=== PATIENT | female | born 1940 | race Caucasian/White ===

== ENCOUNTER 2017-05-07 07:11 | Observation (INO) | payer MEDICARE, BC ==
[~2017-05-07] VITALS: Ht 160 cm; Wt 55.7 kg
--- NOTE | ~2017-05-07 | CR72 ---
[facility] A Service of [facility] & [facility] RADIOLOGY TEXT RESULTS PATIENT: NATIVIDAD HEAD LOCATION: [facility] 577- : 38 UNIT #: [id number] AGE: [address]: Faith Norman MD SEX: F ORDER DR: [id number] [facility] [address] [place], [place] [address] [id number] E MR#: [id number] Acc #: [id number] NAME: NATIVIDAD HEAD. : 1940 SEX: F STUDY DATE/TIME: 05/07/2017 7:58 UNIT: [facility] ROOM: STUDY DESCRIPTION: CR Chest Single View Portable Attending Physician: Soto Lucas M.D. Ordering Physician: Soto Lucas M.D. Primary Care Physician: Faith Norman M.D. MEDICAL IMAGING REPORT This report is preliminary unless electronic signature is present EXAM Portable chest INDICATION Dizziness, shortness of breath today. COMPARISON 08/24/2011. FINDINGS Lungs are well expanded. There is no airspace consolidation. The heart size is stable. Tortuous aorta. IMPRESSION No active disease. Dictated by... Edilson Cardozo M.D. THIS IS AN ELECTRONICALLY VERIFIED REPORT Edilson Cardozo M.D. at 05/08/2017 4:39 PM ERIC/joel TD: 05/07/2017 14:01 JOB #: [id number] MEDICAL IMAGING REPORT Page 1 of 1 COPY
--- NOTE | ~2017-05-07 | CT71 ---
[facility] A Service of [facility] & [facility] RADIOLOGY TEXT RESULTS PATIENT: NATIVIDAD HEAD LOCATION: [facility] 577-01 : 38 UNIT #: [id number] AGE: [address]: Faith Norman MD SEX: F ORDER DR: [id number] [facility] [address] [place], [place] [address] [id number] I MR#: [id number] Acc #: [id number] NAME: NATIVIDAD HEAD. : 1940 SEX: F STUDY DATE/TIME: 05/07/2017 10:59 UNIT: [facility] ROOM: [facility] STUDY DESCRIPTION: CT Head Wo Contrast Attending Physician: Faith Norman M.D. Ordering Physician: Soto Lucas M.D. Primary Care Physician: Faith Norman M.D. MEDICAL IMAGING REPORT This report is preliminary unless electronic signature is present EXAM CT head without contrast INDICATIONS Dizziness and nausea since 5 o'clock this morning TECHNIQUE Axial CT images were obtained from the vertex of the skull through the skull base and intravenous contrast material was administered. This CT exam was performed with one or more of the following radiation dose reduction techniques: automatic exposure control, adjustment of mA and/or kV according to patient size, and iterative reconstruction. FINDINGS No acute intracranial hemorrhage is seen. Patient has some mild atrophy in keeping with the age of 77. There is fairly extensive periventricular deep white matter microangiopathic disease. There is no midline shift or mass effect. There is atherosclerotic involvement of the cavernous carotid arteries. Visualized paranasal sinuses and mastoid air cells appear clear. There are no focal soft tissue abnormalities. IMPRESSION 1. No acute intracranial process identified. Specifically there is no evidence of acute hemorrhage, mass lesion or acute infarct. 2. Mild atrophy and microangiopathic disease is noted above. Dictated by... Rose Garcia M.D. THIS IS AN ELECTRONICALLY VERIFIED REPORT Rose Garcia M.D. at 05/09/2017 4:55 PM [facility] A Service of [facility] & [facility] RADIOLOGY TEXT RESULTS PATIENT: NATIVIDAD HEAD LOCATION: [facility] 577-01 : 38 UNIT #: [id number] AGE: [address]: Faith Norman MD SEX: F ORDER DR: Annemarie TD: 05/07/2017 20:01 JOB #: [id number] MEDICAL IMAGING REPORT Page 1 of 1 COPY
--- NOTE | ~2017-05-07 | DS ---
Unit #: [id number] #: [id number] Patient: LACHELLE HANKS [id number] [address] [address] [id number] I MR#: [id number] NAME: LACHELLE HANKS. ROOM: 577 Age: 77 Sex: F Admission Date: 05/07/2017 : 1940 Discharge Date: 05/08/2017 Attending Physician: Faith Norman M.D. Primary Care Physician: Faith Norman M.D. DISCHARGE SUMMARY FINAL DIAGNOSES 1. Vertigo, most likely benign positional vertigo. 2. Rule out cerebrovascular accident. Magnetic resonance imaging is being ordered. Still pending. 3. Hypertension. 4. Hyperlipidemia, intolerant to statins. 5. Small, 2- to 3-millimeter, aneurysm. Followup magnetic resonance imaging in 1 year. 6. Small lesion, right lobe of thyroid gland. May need ultrasound. DISCHARGE MEDICATIONS 1. Meclizine 25 mg t.i.d. p.r.n. 2. Hydrochlorothiazide 25 mg daily. 3. Continue eyedrops at home. CONSULTATIONS DURING HOSPITALIZATION Dr. Langley for neurology service. DIAGNOSTIC STUDIES LAB WORKUP DURING HOSPITALIZATION: BMP shows sodium 133, potassium 3.5, chloride 99, BUN 14, creatinine 0.7. Liver enzymes are normal. WBC 6, hemoglobin 14.8, hematocrit 43.3, platelet count 226. Urinalysis is normal. Troponin less than 0.05. IMAGING: Chest x-ray, single view, was done, which showed no active disease. CT of the head without contrast was done, which showed no acute intracranial process identified. CTA of the head and neck was done, which showed both vertebral arteries are patient with the left being dominant. No intracranial vascular cutoff. Small bilateral posterior communicators. On the right side there is a small infundibulum, and on the left side there is a small 2- to 3-mm aneurysm. Recommend one-year followup MRA intracranial to reassess. Some atherosclerotic disease in the left subclavian with mild narrowing. There is a lesion in the right lobe of the thyroid gland, which is nonspecific. MRI of the head has been ordered. Results are still pending. HOSPITAL COURSE Ms. Lachelle Hanks is a 77-year-old female who is very well known to me. Was admitted to the hospital with vertigo, dizziness and nausea. The patient was admitted to rule out any CVA. Was started on meclizine. She is Unit #: [id number] #: [id number] Patient: LACHELLE HANKS doing much better at this time. Dr. Langley was consulted. Most likely the patient does have benign positional vertigo. Needs to be treated with meclizine. MRI will be done. If MRI is normal, the patient will be discharged home. Plan of care has been discussed with the patient. EXAMINATION ON DISCHARGE VITAL SIGNS: Blood pressure is 145/65, respiratory rate 18, pulse 76, temperature 97.7, oxygen saturation 100%. HEAD: Normocephalic. EYES: No nystagmus. RESPIRATORY: Chest has fair air entry. CVS: Regular rhythm. DISCHARGE INSTRUCTIONS 1. Patient to follow up with primary care provider in 1 week. 2. Thyroid ultrasound to be ordered as outpatient. 3. MRA of the head and neck to be done in one year to evaluate 2- to 3-mm aneurysm. Dictated by... Yessica Garcia/marisol TD: 05/09/2017 11:39 JOB #: [id number] DISCHARGE SUMMARY Page 1 of 1 X Faith Norman MD X DISCHARGE SUMMARY
--- NOTE | ~2017-05-07 | MR18 ---
[facility] A Service of [facility] & [facility] RADIOLOGY TEXT RESULTS PATIENT: NATIVIDAD HEAD LOCATION: [facility] 5704-07 : 38 UNIT #: [id number] AGE: [address]: Faith Norman MD SEX: F ORDER DR: [id number] [facility] [address] [place], [place] [address] [id number] I MR#: [id number] Acc #: [id number] NAME: NATIVIDAD HEAD. : 1940 SEX: F STUDY DATE/TIME: 05/08/2017 18:22 UNIT: [facility] ROOM: [facility] STUDY DESCRIPTION: MR Brain Wo Contrast Attending Physician: Faith Norman M.D. Ordering Physician: Abdiel Langley M.D. Primary Care Physician: Faith Norman M.D. MRI CENTER REPORT This report is preliminary unless electronic signature is present. EXAM MRI brain without contrast. HISTORY Vertigo for 1 week. Headaches and nausea. FINDINGS MRI of brain was performed without contrast. There is no recent ischemia or infarct. Mqcf-hm-cbiqoiyu chronic ischemic changes in the periventricular white matter bilaterally. Mild generalized cerebral cortical atrophy. No midline shift or ventricular dilatation, focal atrophy or extraaxial fluid collection. IMPRESSION 1. No acute findings. 2. No recent ischemia or infarct. 3. Mild chronic ischemic changes in the deep white matter bilaterally. 4. Mild generalized cerebral cortical atrophy. Dictated by... Trent Rodriguez M.D. THIS IS AN ELECTRONICALLY VERIFIED REPORT Trent Rodriguez M.D. at 05/09/2017 3:15 PM MUSA/yulisa TD: 05/08/2017 20:44 JOB #: [id number] MRI CENTER REPORT [facility] A Service of [facility] & [facility] RADIOLOGY TEXT RESULTS PATIENT: NATIVIDAD HEAD LOCATION: [facility] 5704-07 : 38 UNIT #: [id number] AGE: [address]: Faith Norman MD SEX: F ORDER DR: Page 1 of 1 COPY
--- NOTE | ~2017-05-07 | CT23 ---
[facility] A Service of [facility] & [facility] RADIOLOGY TEXT RESULTS PATIENT: NATIVIDAD HEAD LOCATION: [facility] : 38 UNIT #: [id number] AGE: [address]: Soto Lucas MD SEX: F ORDER DR: [id number] [facility] [address] [place], [place] [address] [id number] E MR#: [id number] Acc #: [id number] NAME: NATIVIDAD HEAD. : 1940 SEX: F STUDY DATE/TIME: 05/07/2017 11:01 UNIT: [facility] ROOM: STUDY DESCRIPTION: CT Angio Neck Attending Physician: Soto Lucas M.D. Ordering Physician: Soto Lucas M.D. Primary Care Physician: Faith Norman M.D. MEDICAL IMAGING REPORT This report is preliminary unless electronic signature is present EXAM CT angiogram of the head and neck HISTORY Dizziness and nausea since [address] angiography of the head and neck vessels performed during the intravenous administration of 100 mL of Isovue 370. Imaging acquired in the axial plane followed by multiple reconstructed and reformatted images for the purpose of 3-D CT angiography of the head and neck vessels. This CT examination was performed with one or more of the following radiation dose reduction techniques: automatic exposure control, adjustment of mA and/or kV according to patient size, and iterative reconstruction. Comparison head CT is from earlier today. There is some vascular calcification at the aortic arch and into the origin of the left subclavian where there is also some soft plaque and probably mild stenosis. There is a bovine origin to left common carotid artery. Evaluation of the right carotid system shows 0% stenosis at the right carotid bifurcation by NASCET criteria. The right carotid siphon is widely patent. There is 0% stenosis at the left carotid bifurcation by NASCET criteria. There is mild calcified plaque at the left carotid siphon but there is no significant stenosis suspected. The left vertebral artery is widely patent and supplies the basilar. The right vertebral artery is widely patent and supplies the basilar. The left is dominant. Evaluation of the intracranial circulation shows no intracranial vascular cutoff. There is a anterior communicator present. There is a small right STS. [facility] A Service of [facility] & [facility] RADIOLOGY TEXT RESULTS PATIENT: NATIVIDAD HEAD [id number] 38 UNIT #: [id number] AGE: [address]: Soto Lucas MD SEX: F ORDER DR: posterior communicator with an infundibulum at its origin. There is a small left posterior communicator with what is probably a small aneurysm at its origin. It is not pyramidal in configuration and is about 2-3 mm in dimension. It should be followed. The dural venous sinuses are grossly patent. No focal central stenosis is suspected. Patient has had cataract surgery bilaterally. There is a nonspecific lesion in the right lobe of the thyroid gland which is mostly low in attenuation but has a focus of calcification within it. Its overall measurements are about 1.2 x 0.8 cm dimension and the calcification is about 4 mm in dimension and this should be further characterized with a nonemergent thyroid ultrasound. There are paraseptal emphysematous changes in the upper lungs. There are degenerative changes in the cervical spine. IMPRESSION 1. By NASCET criteria, 0% stenosis at either carotid bifurcation. 2. Both vertebral arteries are patent with the left being dominant, both supply the basilar. 3. There is no intracranial vascular cutoff. 4. There are small bilateral posterior communicators. On the right side, there is a small infundibulum and on the left side there is a small 2-3 mm aneurysm. I would recommend a 1 year followup MR angiogram intracranial to reassess. 5. There is some atherosclerotic disease at the origin of the left subclavian with mild narrowing. 6. Paraseptal emphysema. 7. There is a lesion in the right lobe of the thyroid gland which is nonspecific and should be characterized with a nonemergent thyroid ultrasound and follow up. STAT * RESULT Dictated by... Lily Silva M.D. THIS IS AN ELECTRONICALLY VERIFIED REPORT Lily Silva M.D. at 05/07/2017 4:09 PM AIDEN/joel TD: 05/07/2017 12:36 JOB #: [id number] MEDICAL IMAGING REPORT Page 1 of 1 COPY
--- NOTE | ~2017-05-07 | HP ---
Unit #: [id number] #: [id number] Patient: NATIVIDAD HEAD [id number] [address] [place], [place] [address] [id number] E MR#: [id number] NAME: NATIVIADD HEAD ROOM: Age: 77 Sex: F Admission Date: 05/07/2017 : 1940 Attending Physician: Soto Lucas M.D. Primary Care Physician: Faith Norman M.D. HISTORY AND PHYSICAL CHIEF COMPLAINT Dizziness. HISTORY OF PRESENTING ILLNESS Miss Larose is a 77-year-old female who is pretty healthy, has history of hypertension and osteoporosis, came because of dizziness. According to patient, this has been going on for last three to four days. First episode was when she was doing yoga and lying down on the floor. Two days ago in the nighttime she got dizzy and fell on the bed. She did not hurt herself. She did not pass out. She did not have any seizures. Patient lives by herself. This morning at 5 o'clock started having dizziness and room was rotating. She was feeling nauseous. She did not have any chest pain or palpitation or vomiting. She came to ER for further evaluation and is being admitted to rule out any CVA. PAST MEDICAL HISTORY 1. Hypertension. 2. Osteoporosis. 3. Hyperlipidemia. 4. Glaucoma. HOME MEDICATION 1. Latanoprost one drop each eye q.h.s. 2. Hydrochlorothiazide 25 mg daily. 3. Lipitor 20 mg daily. Although, according to patient, she has not been taking Lipitor because it causes a lot of pains. PAST SURGICAL HISTORY 1. History of tubal ligation. 2. History of left distal radius fracture surgery in 2012. 3. Open reduction and internal fixation on left radial shaft fracture, removal of hardware left distal radius. ALLERGIES Sulfa medication. SOCIAL HISTORY Patient lives by herself. She does have a 97-year-old mother who lives in the senior care and she visits her a lot. She has no history of smoking, alcohol or drug abuse. FAMILY HISTORY Family history of cardiac disease is present. Unit #: [id number] #: [id number] Patient: NATIVIDAD HEAD REVIEW OF SYMPTOMS No history of fever, chills or rigors. No history of chest pain. No history of shortness of breath. No history of ear, nose, throat problem. No history of abdominal pain. She does have nausea but no vomiting. No constipation or diarrhea. No syncopal episode and no seizure disorder. PHYSICAL EXAMINATION Patient is being evaluated in room 9 in ER. VITAL SIGNS: Blood pressure is 151/66. Respiratory rate is 17. Pulse is 62. Temperature 97.6. Oxygen saturation 97%. HEENT: Head is normocephalic. Eye movements are normal. No nystagmus. NECK: Neck is supple. No carotid bruit. CHEST: Has fair air entry. No additional sounds. CVS: S1, S2 positive. Regular rhythm. ABDOMEN: Soft. EXTREMITIES: Negative edema. ORTHOTIC AIDE: Patient is awake, alert, oriented x3. Does not seem to have focal neurological deficit. DIAGNOSTIC STUDIES LABORATORY WORKUP: WBC 6.0, hemoglobin is 14.8, hematocrit 43.3 and platelet count of 226. Urinalysis is normal. Troponin was done which is less than 0.05. Sodium 133, potassium 3.5, chloride 99, BUN 14, creatinine 0.7, liver enzymes are stable. IMAGING: Chest x-ray single view was done which shows no active disease. CARDIOVASCULAR: EKG shows normal sinus rhythm. ASSESSMENT Patient is being admitted to telemetry unit with: 1. Dizziness/vertigo, rule out cerebrovascular accident. 2. Inability to ambulate secondary to above. 3. Hypertension. 4. Hyperlipidemia. 5. Osteoporosis. PLAN Plan is admit to telemetry unit. Dr. Langley has been consulted. MRI of the head would be ordered. Home medications have been reviewed and adjusted. Meclizine 25 mg t.i.d. and q.6 h. p.r.n. Aspirin 81 mg daily. Protonix 40 mg daily. Falls precaution. SCDs bilateral. Please refer to progress note for further orders. I have discussed with the patient and the patient's daughter at length about plan of care. Dictated by Yessica Garcia TD: 05/07/2017 15:48 JOB #: [id number] Unit #: [id number] #: [id number] Patient: NATIVIDAD HEAD HISTORY AND PHYSICAL Page 1 of 1 X Faith Norman MD HISTORY AND PHYSICAL
--- NOTE | ~2017-05-07 | EKG ---
PATIENT: NATIVIDAD HEAD UNIT #: [id number] Ventricular Rate: 71 BPM Atrial Rate: 71 BPM P-R Interval: 188 ms QRS Duration: 82 ms Q-T Interval: 406 ms QTC Calculation(Bezet): 441 ms P [place]: 21 degrees Calculated R [place]: 23 degrees Calculated T [place]: 62 degrees Diagnosis Line: Normal sinus rhythm Diagnosis Line: Septal infarct , age undetermined Diagnosis Line: Abnormal ECG Diagnosis Line: When compared with ECG of 14-APR-2015 10:25, Diagnosis Line: Septal infarct is now Present Diagnosis Line: Confirmed by FAVIAN BRICEÑO MD ([id number]) on Diagnosis Line: 05/07/2017 8:56:51 AM INTERPRETING MD: NAVARRO HAYES
--- NOTE | ~2017-05-07 | CT17 ---
[facility] A Service of [facility] RADIOLOGY TEXT RESULTS PATIENT: NATIVIDAD HEAD LOCATION: [facility] : 38 UNIT #: [id number] AGE: [address]: Soto Lucas MD SEX: F ORDER DR: [id number] [facility] [address] [place], [place] [address] [id number] E MR#: [id number] Acc #: [id number] NAME: NATIVIDAD HEAD. : 1940 SEX: F STUDY DATE/TIME: 05/07/2017 11:01 UNIT: [facility] ROOM: STUDY DESCRIPTION: CT Angio Head Attending Physician: Soto Lucas M.D. Ordering Physician: Soto Lucas M.D. Primary Care Physician: Faith Norman M.D. MEDICAL IMAGING REPORT This report is preliminary unless electronic signature is present EXAM CTA of the neck FINDINGS Please see CTA of the head for results. STAT * RESULT Dictated by... Lily Silva M.D. THIS IS AN ELECTRONICALLY VERIFIED REPORT Lily Silva M.D. at 05/07/2017 4:09 PM AIDEN/joel TD: 05/07/2017 12:33 JOB #: [id number] MEDICAL IMAGING REPORT Page 1 of 1 COPY
--- NOTE | ~2017-05-07 | CO ---
Unit #: [id number] #: [id number] Patient: NATIVIDAD HEAD [id number] [facility] [address] [place], [place] [address] [id number] MR#: [id number] NAME: NATIVIDAD HEAD ROOM: 577 Age: 77 Sex: F Admission Date: 05/07/2017 : 1940 Attending Physician: Faith Norman M.D. Primary Care Physician: Faith Norman M.D. Consultation Date: 05/07/2017 CONSULTATION REPORT PRIMARY CARE PHYSICIAN Faith Norman M.D. CONSULTING PHYSICIAN Faith Norman M.D. REASON FOR CONSULT Dizziness/vertigo. PATIENT IDENTIFICATION This is a 77-year-old right-handed, female, evaluated in the ER room 9 at [facility]. SOURCE OF INFORMATION Obtained from the patient as well as medical record. HISTORY OF PRESENT ILLNESS This is a very pleasant 77-year-old right-handed, female with a past medical history of hypertension and hyperlipidemia, who presents to [facility] with a chief complaint of dizziness. The patient states that she is very active and independent at baseline. She was doing yoga last week whenever she had a couple of light episodes of "dizziness" where she states that the room was spinning. She was a little nauseated, but she reports the symptoms resolved, so she thought that everything was okay and went on about her business; however, over the last couple of days, she had sudden recurrence of vertigo more severe with severe nausea, but no vomiting. She states that it has been ongoing for the last couple of days. At one point, last night, she got so bad that she actually fell on her bed. She states that she did not injure herself or lose consciousness or lose awareness. She denies any associated slurred speech or loss of speech or abnormal speech. She denies any associated double vision, blurred vision, or loss of vision. Denies amaurosis fugax. She denies headache, neck pain, or neck injury. She denies any recent injury or manipulation. She denies any shortness of air, chest pain, palpitations, focal weakness, paresthesia, or any other associated symptoms. She reports that she feels better whenever she is sitting still and worse whenever she lies flat and turns and changes position. On exam, she is nonfocal, but does have recurrence of symptoms. When I have her lie flat with her head turned to the left, she has a positive Kane-Hallpike on the left. CT of the head was done without contrast in the ER, which was negative for any acute intracranial finding. She had a CT angiogram of the head and neck done as well in the ER, which per Radiology report, by NASCET criteria, shows 0% stenosis, either carotid bifurcation, both vertebral arteries are patent with left being Unit #: [id number] #: [id number] Patient: NATIVIDAD HEAD dominant with both supplying the basilar artery. No intracranial vascular cut off. There are small bilateral posterior communicators. On the right side, there is a small infundibulum, and on the left side, there is a small 2 to 3 mm aneurysm. There was some atherosclerotic disease at the origin of the left subclavian with mild narrowing paraseptal emphysema noted as well as a lesion in the right lobe of the thyroid gland, which is nonspecific and should be characterized with a nonemergent thyroid ultrasound followup. Imaging reviewed personally. She had an EKG in the ER that showed normal sinus rhythm. Septal infarct, age undetermined, per Cardiology report. Otherwise, labs are essentially unremarkable other than some mild hyponatremia with a sodium of 133, chloride of 99, troponin is less than 0.05. Urinalysis is unremarkable and CBC is unremarkable. The patient states that she feels better with medicine that she received in the ER, but states that she still unsteady and not back to her baseline. She was admitted for further workup and evaluation. Neurology was asked to evaluate. PAST MEDICAL HISTORY 1. Hypertension. 2. Hyperlipidemia. 3. Osteoporosis. 4. Glaucoma. She denies a history of neurologic disease or malignancy. PAST SURGICAL HISTORY 1. Tubal ligation. 2. Left distal radius fracture with surgery in 2012 with ORIF done. ALLERGIES Sulfa. HOME MEDICATIONS Are being reconciled. She states she takes medicine for her high blood pressure and also takes a shot for osteoporosis. She states that she used to take a statin, but reports intolerance to that and stop that. She reports muscle pain and cramping as a reason for stopping. FAMILY HISTORY Noncontributory. SOCIAL HISTORY The patient is very independent. She lives by herself. She has family at the bedside. She is very independent with ADLs. She reports that she smoked at a very young age, but has not done so in several years. She denies illicit drug use. She reports occasional alcohol use, but no excessive alcohol use or binge drinking. She states that she has wine on occasion. REVIEW OF SYSTEMS A 14-point review of systems was done. Pertinent positives are as discussed above otherwise negative. PHYSICAL EXAMINATION VITAL SIGNS: Temperature 97.6, pulse 63, respirations 15, blood pressure 134/67, blood pressure in the ER on arrival is 152/92, and oxygen saturation 96%. Height 5 feet 3 inches, weight 123 pounds, BMI 21. NEUROLOGIC: The patient is awake, alert, and oriented to person, place, and time as well as events. No right or left confusion. No finger Unit #: [id number] #: [id number] Patient: NATIVIDAD HEAD agnosia. She is not aphasic, dysarthric, or apraxic. Cranial nerves exam, she demonstrates full roman of vision. Eyes are conjugate without ptosis or nystagmus. Extraocular movements are intact. Sensation of face and scalp is intact. Strength of muscles of facial expression is intact. Hearing is intact to finger rub and conversation. Tongue is midline. Uvula is midline. Palate elevation is normal. Head turning and shoulder shrug is unremarkable. Neck is supple. Motor exam, she demonstrates normal bulk and tone. Strength is equal 5/5 in all extremities. Sensory exam intact to soft touch and pinprick sensation. Gait deferred. Romberg deferred. Coordination unremarkable. Positive Kane-Hallpike on the left. DIAGNOSTIC STUDIES IMAGING STUDIES AND LABORATORY RESULTS: As discussed above. IMPRESSION 1. Vertigo, most likely benign paroxysmal positional vertigo with positive left Kane-Hallpike on exam. 2. Hypertension, stable. 3. Hyperlipidemia, not on statin. She reports intolerance as discussed above. 4. 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 Recommend followup imaging in 1 year. PLAN We will ask PT and OT to evaluate tomorrow. Given her positive Kane-Hallpike on the left, we will observe overnight and continue meclizine and request MRI of the brain to be done tomorrow afternoon when the machine is fixed. Her CT angiogram is unremarkable for any vertebrobasilar insufficiency or dissection and clinically nothing to suggest dissection. Possible discharge to home tomorrow evening if the patient is clinically better and MRI of the brain is negative for stroke. Please call for any questions or issues. We thank you very much for allowing us to assist in the care of this patient. Dictated by... Janneth Marquez A.P.R.N. for Yessica Zuluaga/jayant TD: 05/09/2017 04:42 JOB #: [id number] CONSULTATION REPORT Page 1 of 1 X Janneth Marquez [employer] X CONSULTATION REPORT
[~2017-05-07 07:11] MED LIST: ACETAMINOPHEN325 MG PO; ALENDRONATE SODI5 MG PO; ASPIRIN81 M1 PO; HYDROCHLOROTH12.5 M1 PO; HYDROCHLOROTH12.5 MG PO; HYDROCODON-ACE1 EAC5 PO; LATANOPROST2.5 ML OP; LIPITOR20 MG PO; NITROFURANTOIN100 M3 PO; PRAVACHOL PO; PRAVASTATIN SOD40 MG PO; SKELAXIN PO; ULTRAM PO; VICODIN 5/500 T1 TAB PO; VITAMIN B12 PO; VITAMIN D400 UNI2 PO
[2017-05-07 08:05] LABS: BASOPHIL# 0.1 X10e3 (0-0.3); BASOPHIL% 1.2 % (0-2.5); DIFF IND NO; EOSINOPHIL# 0.2 X10e3 (0-0.7); EOSINOPHIL% 2.6 % (0.0-7.0); HEMATOCRIT 43.3 % (35.0-45.0); HEMOGLOBIN 14.8 gm/dL (12.0-16.0); LYMPHOCYTE# 2.3 X10e3 (1.0-3.5); LYMPHOCYTE% 38.5 % (17.0-45.0); MEAN CELL VOLUME 88.8 FL (83-96); MEAN CORPUSCULAR HEMOGLOBIN 30.3 PG (28-34); MEAN CORPUSCULAR HGB CONC 34.1 g/dL (30-36); MEAN PLATELET VOLUME 8.4 FL (6.5-11.5); MONOCYTE# 0.6 X10e3 (0-1.0); MONOCYTE% 10.1 % (3.0-12.0); NEUTROPHIL# 2.8 X10e3 (1.5-7.1); NEUTROPHIL% 47.6 % (40-75); PLATELET COUNT 226 X10e3 (140-420); RED BLOOD COUNT 4.88 X10e (3.90-5.30); RED CELL DISTRIBUTION WIDTH 13.8 % (11.0-15.5)
[2017-05-07 08:11] LABS: URINE SOURCE CLEAN CATCH
[2017-05-07 08:18] LABS: URINE APPEARANCE CLEAR; URINE BILIRUBIN NEG (NEG); URINE BLOOD NEG (NEG); URINE COLOR YELLOW; URINE GLUCOSE NEG (NEG); URINE KETONE NEG (NEG); URINE LEUKOCYTE ESTERASE NEG (NEG); URINE NITRATE NEG (NEG); URINE PROTEIN NEG (NEG); URINE SPECIFIC GRAVITY 1.013 (1.003-1.035); URINE UROBILINOGEN 0.2 MG/DL (NEG)
[2017-05-07 08:23] LABS: CULTURE INDICATED? NO
[2017-05-07 08:24] LABS: POC - CKMB 1.1 ng/mL (0.0-7.9); POC - TROPONIN <0.05 ng/mL (<=0.05)
[2017-05-07 08:31] LABS: ALBUMIN SERUM 4.1 g/dL (3.5-5.0); BILIRUBIN, DIRECT 0.1 mg/dL (0.0-0.2); BILIRUBIN,INDIRECT 0.7 mg/dL (0.0-0.9); BILIRUBIN,TOTAL 0.8 mg/dL (0.2-2.0); CALCIUM SERUM 10.2 mg/dL (8.4-10.2); CREATININE SERUM 0.7 mg/dL (0.6-1.4); GLOM FILT RATE Estimated 82.4 mL/min (>60); POTASSIUM 3.5 mmol/L (3.5-5.1); PROTEIN TOTAL SERUM 7.3 g/dL (6.0-8.3)
[2017-05-07] MEDS ORDERED: PATIENT'S PHARMACY (13:30)
[2017-05-07] MEDS ORDERED: LIPITOR20 MG PO (13:31)
[2017-05-07] MEDS ORDERED: LATANOPROST2.5 ML OU (13:31)
[2017-05-07] MEDS ORDERED: HYDROCHLOROTHIA25 MG PO (13:31)
[2017-05-08] MEDS ORDERED: ASPIRIN81 MG PO (15:36)
[2017-05-08] MEDS ORDERED: ANTIVERT PO (15:36)
== END 2017-05-08 20:31 | disposition home or self-care (01) ==
LOC: CED 07:11 → CEDOF 13:24 → CED 13:24 → C5C 16:00 → CEDOF 16:00 → C5C 19:25 → CEDOF 19:25 → C5C 05-08 20:31
PROVIDERS: Emergency Medicine
DX: R42 Dizziness and giddiness (principal); I10 Essential (primary) hypertension; E78.5 Hyperlipidemia, unspecified; T46.6X5A Adverse effect of antihyperlipidemic and antiarteriosclerotic drugs, initial encounter; E07.9 Disorder of thyroid, unspecified; M81.0 Age-related osteoporosis without current pathological fracture; I67.0 Dissection of cerebral arteries, nonruptured; Z88.2 Allergy status to sulfonamides; Z79.899 Other long term (current) drug therapy; Z98.51 Tubal ligation status; Z98.890 Other specified postprocedural states
CPT/HCPCS: 36415; 70450; 70496; 70498; 70551; 71010; 80048; 80076; 81003; 82553; 82947; 84484; 85025; 93005; 96361; 96374; 97112; 97161; 97165; 97535; 99285; G0378; G8978-GP; G8979-GP; G8980-GP; G8987-GO; G8988-GO; G8989-GO; J2405; Q9967

== ENCOUNTER → 2017-05-16 | Outpatient (CLI) | payer MEDICARE, BC ==
[~2017-05-16] MED LIST changes: +ANTIVERT PO; +ASPIRIN81 MG PO; +HYDROCHLOROTHIA25 MG PO; +LATANOPROST2.5 ML OU; +PATIENT'S PHARMACY
--- NOTE | ~2017-05-16 | US128 ---
[id number] [facility] [address] [place], [place] [address] [id number] O MR#: [id number] Acc #: [id number] NAME: NATIVIDAD HEAD : 1940 SEX: F STUDY DATE/TIME: 05/16/2017 14:41 UNIT: CGUS ROOM: STUDY DESCRIPTION: US Thyroid Attending Physician: Omero Leger Referring Physician: Omero Leger Ordering Physician: Omero Leger Primary Care Physician: Faith Norman M.D. MEDICAL IMAGING REPORT This report is preliminary unless electronic signature is present EXAM Thyroid ultrasound, 05/16/2017 HISTORY Right thyroid lobe nodule noted on CT angiogram of the head and neck performed 05/07/2017. Thyroid ultrasound was recommended for further evaluation. FINDINGS Right thyroid lobe measured 3.6 cm x 1.6 cm x 1.6 cm while the left lobe measured 3.5 cm x 1.5 cm x 1.2 cm. This isthmus measured 4 mm in the AP direction. There is a 1.6 cm x 1 cm x 8 mm partially calcified, partially cystic nodule in the right thyroid lobe. Correlation with ultrasound-guided fine needle aspiration of the lesion is recommended to exclude thyroid neoplasm. There are no masses extrinsic to the thyroid. IMPRESSION Complicated partially calcified nodule which is solitary in the right thyroid lobe. Correlation with ultrasound-guided fine needle aspiration of the nodule is recommended. Dictated by... Gerber Samaniego M.D. THIS IS AN ELECTRONICALLY VERIFIED REPORT Gerber Samaniego M.D. at 05/17/2017 10:21 AM JACKLYN/janak TD: 05/17/2017 06:19 JOB #: [id number] MEDICAL IMAGING REPORT Page 1 of 1 COPY
== END | disposition home or self-care (01) ==
LOC: CGUS 14:24
DX: E04.1 Nontoxic single thyroid nodule (principal)
CPT/HCPCS: 76536

== ENCOUNTER → 2017-05-28 | Outpatient (CLI) | payer MEDICARE, BC ==
--- NOTE | ~2017-05-28 | XA230 ---
[facility] A Service of [facility] & [facility] RADIOLOGY TEXT RESULTS PATIENT: NATIVIDAD HEAD LOCATION: [facility] : 38 UNIT #: [id number] AGE: [address]: Faith Norman MD SEX: F ORDER DR: [id number] [facility] [address] [place], [place] [address] [id number] O MR#: [id number] Acc #: [id number] NAME: NATIVIDAD HEAD. : 1940 SEX: F STUDY DATE/TIME: 05/28/2017 8:49 UNIT: [facility] ROOM: STUDY DESCRIPTION: XA FNA Attending Physician: Faith Norman M.D. Ordering Physician: Faith Norman M.D. Primary Care Physician: Faith Norman M.D. MEDICAL IMAGING REPORT This report is preliminary unless electronic signature is present EXAM Ultrasound-guided right thyroid FNA INDICATION This patient underwent a thyroid ultrasound on May 16, 2017 which showed an irregularly marginated partially calcified nodule within the right lobe measuring about 1.6 x 0.9 x 0.8 cm. She has been referred for FNA. PROCEDURE The risks, benefits, and alternatives to the procedure were explained to the patient, and signed, informed consent was obtained. She was placed supine on the stretcher. Preliminary ultrasound of the right lobe of the thyroid gland was performed which again demonstrated the previously identified heterogeneous nodule which is predominantly a calcification. This is located within the inferior pole of the right lobe of the thyroid gland anterior to the right common carotid artery. Skin and subcutaneous tissues were anesthetized with buffered lidocaine and a total of 3 separate passes were made through the lesion under direct sterile sonographic guidance using 25-gauge needles. Please note this was extremely technically difficult to access due to its location within the most inferior aspect of the thyroid gland anterior to the carotid artery as well as to the calcification within the lesion. Specimens were given to the electro mechanical technologist who confirmed an adequate specimen had been obtained. Procedure was subsequently terminated. IMPRESSION Technically successful ultrasound-guided right thyroid FNA as noted above. Ultrasound was used during the procedure and permanent images were obtained. Please note this was a very technically difficult FNA to perform due to the location of the nodule within the most inferior aspect of the thyroid gland anterior to the right common carotid artery as well as due to the extensive calcifications within the lesion itself. If biopsy results remain indeterminate, I would suggest continued sonographic STS. [facility] A Service of [facility] & [facility] RADIOLOGY TEXT RESULTS PATIENT: NATIVIDAD HEAD LOCATION: [facility] : 38 UNIT #: [id number] AGE: [address]: Faith Norman MD SEX: F ORDER DR: follow up with next followup in about 6 months. Dictated by... Rose Garcia M.D. THIS IS AN ELECTRONICALLY VERIFIED REPORT Rose Garcia M.D. at 05/29/2017 4:54 PM SAM/joel TD: 05/29/2017 13:04 JOB #: [id number] MEDICAL IMAGING REPORT Page 1 of 1 COPY
== END | disposition home or self-care (01) ==
LOC: CIVR 08:25
PROC: 0GBH3ZX Excision of Right Thyroid Gland Lobe, Percutaneous Approach, Diagnostic (ICD-10-PCS; principal; 2017-05-28)
DX: E04.1 Nontoxic single thyroid nodule (principal); R93.8 Abnormal findings on diagnostic imaging of other specified body structures
CPT/HCPCS: 76942; 88173